=== PATIENT | female | born 2000 | race Caucasian/White ===

== ENCOUNTER 2021-09-10 08:58 | Outpatient (CLI) | payer OTHER ==
[2021-09-10 10:09] LABS: BHCG - Serum Negative (NEGATIVE); Pregs Control Background? CLEAR/WHITE (CLR/WHITE); Pregs Control Bar Appear? YES (CONTROL BAR)
== END 2021-09-10 08:59 | disposition home or self-care (01) ==
LOC: CSHLAB 08:58
PROVIDERS: ATTEND Otolaryngology Otolaryngic Allergy
DX: Z01.812 Encounter for preprocedural laboratory examination (principal); Z20.822 Contact with and (suspected) exposure to COVID-19; J32.9 Chronic sinusitis, unspecified; J34.3 Hypertrophy of nasal turbinates
CPT/HCPCS: 84703; 85014; 87811

== ENCOUNTER 2021-09-15 06:01 | Day surgery (SDC) | payer OTHER ==
[2021-09-09 15:57] VITALS: BMI 20.7
[2021-09-15] MEDS ORDERED: Lidocaine 1% MPF 2 ML VIAL ONE (06:21)
[2021-09-15] MEDS ORDERED: Oxymetazoline HCl 0.05% ( 15 ML ) ONE (06:25)
[2021-09-15] MEDS ORDERED: Dexamethasone 4 mg/ml Vial ONE ×2 (06:35→06:36)
[2021-09-15] MEDS ORDERED: Ketorolac Tromethamine 30 MG/ML VIAL ONE (06:35)
[2021-09-15] MEDS ORDERED: Fentanyl 250 MCG/5 ML VIAL ONE (06:35)
[2021-09-15] MEDS ORDERED: Meperidine HCl/PF 25 MG/ML VIAL ONE (06:35)
[2021-09-15] MEDS ORDERED: Ondansetron PF 4 MG/2 ML Vial ONE ×2 (06:35→06:36)
[2021-09-15] MEDS ORDERED: Midazolam HCl 2 mg/2 ml Vial ONE (06:35)
[2021-09-15] MEDS ORDERED: PROPOFOL 20 ML ONE (06:35)
[2021-09-15] MEDS ORDERED: Lidocaine 1% PF 5 ML VIAL ONE (06:36)
[2021-09-15] MEDS ORDERED: Rocuronium Bromide 10 MG/ML (10ML VIAL) ONE (06:36)
[2021-09-15] MEDS ORDERED: Lidocaine 4% PF 5 ML AMP ONE (06:36)
[2021-09-15] MEDS ORDERED: EPINEPHrine 1 MG/ML AMP ONE ×2 (06:38→07:00)
[2021-09-15] MEDS ORDERED: Mupirocin 2% Ointment 22 GM Tube ONE (06:39)
[2021-09-15] MEDS ORDERED: Lidocaine 1% w/Epinephrine 1:100K 20 ML VIAL ONE (06:39)
[2021-09-15] MEDS ORDERED: CEFAZOLIN 1 GM VIAL ONE (07:26)
[2021-09-15] MEDS ORDERED: Triamcinolone 40 MG/ML VIAL ONE (08:41)
[2021-09-15] MEDS ORDERED: Glycopyrrolate 0.2 MG/ML 5 ML SYRINGE ONE (09:09)
[2021-09-15] MEDS ORDERED: Fentanyl 100 MCG/2 ML VIAL ONE (10:09)
== END 2021-09-15 10:45 | disposition home or self-care (01) ==
LOC: CSHSDC 06:01
PROVIDERS: ATTEND Otolaryngology Otolaryngic Allergy
PROC: 09BR8ZZ Excision of Left Maxillary Sinus, Via Natural or Artificial Opening Endoscopic (ICD-10-PCS; principal; 2021-09-15)
PROC: 09QX4ZZ Repair Left Sphenoid Sinus, Percutaneous Endoscopic Approach (ICD-10-PCS; principal; 2021-09-15)
PROC: 09BQ8ZZ Excision of Right Maxillary Sinus, Via Natural or Artificial Opening Endoscopic (ICD-10-PCS; principal; 2021-09-15)
PROC: 09TL8ZZ Resection of Nasal Turbinate, Via Natural or Artificial Opening Endoscopic (ICD-10-PCS; principal; 2021-09-15)
PROC: 09QW4ZZ Repair Right Sphenoid Sinus, Percutaneous Endoscopic Approach (ICD-10-PCS; principal; 2021-09-15)
PROC: 8E09XBZ Computer Assisted Procedure of Head and Neck Region (ICD-10-PCS; principal; 2021-09-15)
DX: J32.0 Chronic maxillary sinusitis (principal); J34.3 Hypertrophy of nasal turbinates; J34.89 Other specified disorders of nose and nasal sinuses; J35.01 Chronic tonsillitis; K21.9 Gastro-esophageal reflux disease without esophagitis; J30.1 Allergic rhinitis due to pollen; J30.2 Other seasonal allergic rhinitis; Z91.040 Latex allergy status; Z91.048 Other nonmedicinal substance allergy status
CPT/HCPCS: 88305; J0171; J0690; J1100; J1885; J2175; J2250; J2405; J2704; J3010; J3301